=== PATIENT | male | born 1980 | race African-American/Black ===

== ENCOUNTER 2019-12-25 00:33 | Emergency (ER) | payer MEDICAID ==
[~2019-12-25] VITALS: Ht 193 cm; Wt 67.0 kg
[2019-12-25 06:41] VITALS: BP 119/84
== END 2019-12-25 09:13 | disposition home or self-care (01) ==
LOC: ER 00:33
DX: F10.229 Alcohol dependence with intoxication, unspecified (principal); Y90.0 Blood alcohol level of less than 20 mg/100 ml; F31.9 Bipolar disorder, unspecified; F20.9 Schizophrenia, unspecified; Z59.0 Homelessness
CPT/HCPCS: 99283

== ENCOUNTER 2020-02-27 00:23 | Emergency (ER) | payer MEDICAID ==
[~2020-02-27] VITALS: Ht 185.4 cm; Wt 86.0 kg
[2020-02-27 08:14] LABS: BASOPHILS % 0.7 % (0.0-2.0); EOSINOPHILS % 6.4 % (0.0-5.0); HEMATOCRIT. 38.3 % (42.0-52.0); HEMOGLOBIN. 12.8 g/dL (14.0-18.0); LYMPHOCYTES % 30.5 % (20.0-50.0); MEAN CORPUSCULAR HEMOGLOBIN 31.2 pg (28.0-32.0); MEAN CORPUSCULAR VOLUME 93.3 fL (80.0-94.0); MEAN PLATELET VOLUME 9.1 fl (7.4-10.4); MONOCYTES % 11.9 % (2.0-8.0); NEUTROPHILS % 50.5 % (40.0-76.0); PLATELET 193 x1000/uL (130-400); RED BLOOD CELL COUNT 4.11 mill/uL (4.7-6.1); RED CELL DISTRIBUTION WIDTH 16.1 % (11.6-14.6)
[2020-02-27 08:44] LABS: ETHANOL BLOOD 230 mg/dL
[2020-02-27 09:10] LABS: CHLORIDE 110 mEq/L (98-107)
[2020-02-27] MEDS ORDERED: IBUPROFEN 600MG TABLET PO ONE (10:30)
[2020-02-27 12:01] VITALS: BP 118/65
== END 2020-02-27 12:04 | disposition home or self-care (01) ==
LOC: ER 02:22
DX: F10.129 Alcohol abuse with intoxication, unspecified (principal); M79.662 Pain in left lower leg; M79.661 Pain in right lower leg; F12.10 Cannabis abuse, uncomplicated; F17.210 Nicotine dependence, cigarettes, uncomplicated; G40.909 Epilepsy, unspecified, not intractable, without status epilepticus; F20.9 Schizophrenia, unspecified; Y90.7 Blood alcohol level of 200-239 mg/100 ml; Z59.0 Homelessness; Z91.018 Allergy to other foods
CPT/HCPCS: 36415; 80053; 80307; 80320; 80329; 85025; 99283; G0480